=== PATIENT | female | born 1935 | race Caucasian/White ===

== ENCOUNTER 2017-02-22 08:19 | Emergency (ER) | payer OTHER ==
[~2017-02-22] VITALS: Ht 157.5 cm; Wt 77.1 kg
[2017-02-22] MEDS ORDERED: ACETAMINOPHEN 650 MG RECT SUPP PR ONE (08:30)
[2017-02-22] MEDS ORDERED: ACETAMINOPHEN 325 MG TAB PO ONE (09:30)
[2017-02-22] MEDS ORDERED: SODIUM CHLORIDE 0.9% 1,000 ML IV ONE ×2 (09:45→15:00)
[2017-02-22 09:46] LABS: Albumin 3.3 g/dL (3.4-5.0); Alkaline Phosphatase 99 U/L (45-117); Anion Gap 9 (5-15); Aspartate Aminotransferase 38 U/L (15-37); BUN/Creatinine Ratio 16.4; Bilirubin, Total 0.6 mg/dL (0.2-1.0); Blood Urea Nitrogen 24 mg/dL (7-18); Calcium 8.8 mg/dL (8.5-10.1); Carbon Dioxide 20 mmol/L (21-32); Chloride 106 mmol/L (98-107); GFR African American 44 mL/min; GFR Non-African American 36 mL/min; Glucose 183 mg/dL (74-106); Magnesium 2.5 mg/dL (1.6-2.6); Potassium 5.2 mmol/L (3.5-5.1); Sodium 135 mmol/L (136-145); Total Protein 5.6 g/dL (6.4-8.2)
[2017-02-22 09:49] LABS: Lactic Acid w/Reflex 3.1 mmol/L (0.4-2.0)
[2017-02-22 09:51] LABS: REFLEX LACTIC ACID YES OR NO YES
[2017-02-22 09:53] LABS: DEFINITIVE Y; Hematocrit 35.8 % (36.0-46.0); Hemoglobin 11.4 g/dL (12.2-16.2); Mean Corpuscular Hemoglobin 30.9 pg (28.0-32.0); Mean Corpuscular Hgb Conc. 31.8 g/dL (32.0-36.0); Mean Corpuscular Volume 96.9 fL (80.0-100.0); Platelet Count (auto) 118 10^3/uL (140-450); Red Cell Distribution Width 19.1 % (11.6-16.0); SUSPECT Y
[2017-02-22 10:27] LABS: Promyelocytes % 0; Reactive Lymphocytes 0; White Blood Cell 184.6 10^3/uL (4.4-10.8)
[2017-02-22] MEDS ORDERED: MORPHINE SULFATE 4 MG/ML SYRG IV ONE (11:15)
[2017-02-22] MEDS ORDERED: ONDANSETRON HCL 4 MG/2 ML VIAL IV ONE (11:15)
[2017-02-22 11:56] LABS: Urine Bilirubin Negative (Negative); Urine Blood Negative /uL (Negative); Urine Color Yellow (Yellow); Urine Glucose Normal (Normal); Urine Hyaline Cast FEW /lpf (0 - 2); Urine Ketone TRACE (Negative); Urine Mucus FEW (None Seen); Urine Nitrite Negative (Negative); Urine RBC 1 /hpf (0 - 4); Urine Squamous Epithelial Cell FEW /hpf (<5); Urine Urobilinogen Normal (Negative); Urine pH 5.5 (5.0-8.0)
[2017-02-22] MEDS ORDERED: cefTRIAXone 1GM/50ML D5W 50 ML IV ONE (13:30)
[2017-02-22 14:23] LABS: Metamyelocytes % 4; Myelocytes % 3
[2017-02-22 14:24] LABS: Platelet Estimate Decreased
[2017-02-22 16:39] VITALS: BP 102/57
== END 2017-02-22 17:20 | disposition short-term general hospital (02) ==
LOC: EDBD 08:19 → ER 08:22
DX: C91.10 Chronic lymphocytic leukemia of B-cell type not having achieved remission (principal); T45.1X5A Adverse effect of antineoplastic and immunosuppressive drugs, initial encounter; E11.21 Type 2 diabetes mellitus with diabetic nephropathy; E44.1 Mild protein-calorie malnutrition; Z68.31 Body mass index [BMI] 31.0-31.9, adult; L03.116 Cellulitis of left lower limb; L03.115 Cellulitis of right lower limb; E87.5 Hyperkalemia; R79.89 Other specified abnormal findings of blood chemistry; R53.1 Weakness; Y93.89 Activity, other specified; Y99.8 Other external cause status; Y92.89 Other specified places as the place of occurrence of the external cause
CPT/HCPCS: 36415; 71010; 80053; 81001; 83605; 83735; 84484; 85007; 85027; 85379; 87040; 93005; 94761; 96361; 96365; 96375; 99285; J0696; J2270; J2405; J7030

== ENCOUNTER 2017-09-26 11:28 | Observation (INO) | payer OTHER ==
[~2017-09-26] VITALS: Ht 157.5 cm; Wt 68.0 kg
[2017-09-26] MEDS ORDERED: SODIUM CHLORIDE 0.9% 500 ML IVB ONE (11:59)
[2017-09-26 13:25] LABS: Alanine Aminotransferase 12 U/L (13-56); Albumin 3.3 g/dL (3.4-5.0); Alkaline Phosphatase 140 U/L (45-117); Anion Gap 7 (5-15); Aspartate Aminotransferase 38 U/L (15-37); BUN/Creatinine Ratio 14.1; Bilirubin, Total 0.7 mg/dL (0.2-1.0); Blood Urea Nitrogen 18 mg/dL (7-18); Calcium 8.7 mg/dL (8.5-10.1); Carbon Dioxide 25 mmol/L (21-32); Chloride 109 mmol/L (98-107); GFR African American 51 mL/min; GFR Non-African American 42 mL/min; Glucose 107 mg/dL (74-106); Magnesium 2.9 mg/dL (1.6-2.6); Sodium 141 mmol/L (136-145); Total Protein 5.6 g/dL (6.4-8.2)
[2017-09-26 14:01] LABS: Urine Bacteria NONE SEEN /hpf (None Seen); Urine Blood Negative /uL (Negative); Urine Hyaline Cast FEW /lpf (0 - 2); Urine Specific Gravity 1.017 (1.001-1.035); Urine WBC 8 /hpf (0 - 5)
[2017-09-26] MEDS ORDERED: LEVOFLOXACIN 250MG 50 ML IV ONE (15:00)
[2017-09-26] MEDS ORDERED: AZITHROMYCIN 500MG/ 250ML 250 ML IV ONE (15:00)
[2017-09-26 15:26] LABS: Hematocrit 19.5 % (36.0-46.0); Mean Corpuscular Hemoglobin 22.9 pg (28.0-32.0); Mean Corpuscular Volume 91.3 fL (80.0-100.0); Platelet Count (auto) 85 10^3/uL (140-450); Red Blood Cells 2.14 10^6/uL (4.0-5.20)
[2017-09-26 15:37] LABS: Red Cell Distribution Width 20.7 % (11.8-14.3)
[2017-09-26 15:42] LABS: Hemoglobin 4.9 g/dL (12.2-16.2); White Blood Cell 471.4 10^3/uL (4.4-10.8)
[2017-09-26 15:43] LABS: Band Neutrophils % (manual) 0; Basophils % (manual) 0 (0.0-2.0); Eosinophils % (manual) 0 (0-7); Metamyelocytes % 0; Myelocytes % 0; Promyelocytes % 0; Reactive Lymphocytes 0
[2017-09-26 19:05] VITALS: BP 138/62
[2017-09-26 19:20] VITALS: BP 133/56
[2017-09-26 19:34] LABS: Blast Cells 5; Lymphocytes % (manual) 80 (10.0-50.0); Monocytes % (manual) 9 (0-12)
[2017-09-26 20:38] VITALS: BP 145/65
[2017-09-26 21:07] VITALS: BP 150/71
[2017-09-26 21:22] VITALS: BP 148/60
[2017-09-26 22:47] VITALS: BP 144/74
== END 2017-09-26 23:48 | disposition home or self-care (01) | DRG 194 ==
LOC: EDBD 11:28 → ER 11:28 → OVERFLOW 12:06 → ER 23:48
PROVIDERS: ADMIT Family Medicine; ATTEND Family Medicine
DX: J18.1 Lobar pneumonia, unspecified organism (principal); C91.10 Chronic lymphocytic leukemia of B-cell type not having achieved remission; N19 Unspecified kidney failure; D69.6 Thrombocytopenia, unspecified; D64.9 Anemia, unspecified; I48.91 Unspecified atrial fibrillation; N39.0 Urinary tract infection, site not specified; I10 Essential (primary) hypertension; K21.9 Gastro-esophageal reflux disease without esophagitis
CPT/HCPCS: 36415; 71045; 80053; 81001; 83605; 83735; 84132; 84484; 85007; 85025; 85027; 86850; 86900; 86901; 86920; 87040; 93005; 96361; 96365; 96366; 96368; 99291; G0378; J0456; J1956; J7040; P9016; 36430